=== PATIENT | male | born 2000 | race Caucasian/White ===

== ENCOUNTER → 2025-11-14 | Outpatient (CLI) | payer BC, SELFPAY ==
[2025-11-14 14:46] LABS: Anion Gap 9 (7-18); BUN 14 mg/dL (4-19); BUN/Creat Ratio 13.1 RATIO (10-20); Calcium,Total 9.5 mg/dL (7.6-11.0); Carbon Dioxide 26.2 mmol/L (20.0-29.0); Chloride 104 mmol/L (96-106); Glucose 86 mg/dL (70-99); Potassium 4.4 mmol/L (3.5-5.1)
[2025-11-14 15:40] LABS: Cholesterol 141 mg/dL (<=200); Low Density Lipoprotein Calc. 80 mg/dL; Triglycerides 49 mg/dL; Very Low Density Lipoprotein 10 mg/dL (5-40); cholesterol:hdl ratio screen 2.80
== END | disposition home or self-care (01) ==
PROVIDERS: PCP Family Medicine; Visit Provider Nurse Practitioner Family
DX: Z13.1 Encounter for screening for diabetes mellitus (principal); Z13.220 Encounter for screening for lipoid disorders
CPT/HCPCS: 36415; 80048; 80061